=== PATIENT | female | born 1950 | race Caucasian/White ===

== ENCOUNTER → 2018-08-08 | Day surgery (SDC) | payer OTHER ==
[~2018-08-08] MED LIST: FOSAMAX70 MG PO; LIPITOR PO; METROPOLOL PO
== END | disposition home or self-care (01) ==
LOC: CIR.AMB 08-01 07:00 → ADM 08-01 07:00 → CIR.AMB 04:50
DX: K80.10 Calculus of gallbladder with chronic cholecystitis without obstruction (principal)